=== PATIENT | female | born 1980 | race Caucasian/White ===

== ENCOUNTER 2025-06-28 10:10 | Day surgery (SDC) | payer OTHER ==
--- NOTE | 2025-06-28 09:03 | HP ---
HISTORY OF PRESENT ILLNESS: Patient is a 45-year-old, changing pigmented mole left chest near axilla. Mom has had history of skin cancer, one of her sisters having melanoma. PAST MEDICAL HISTORY: Hyperlipidemia. PAST SURGICAL HISTORY: Had tubal in the past. Had lamar excised on the right hip in the past. FAMILY HISTORY: As mentioned above, history of skin cancer, bladder cancer, and prostate cancer. ALLERGIES: No known drug allergies. SOCIAL HISTORY: No smoking. Occasional alcohol use. MEDICATIONS: Fenofibrate. REVIEW OF SYSTEMS: Twelve systems reviewed. Pertinent for medical problems noted above. No chest pain or palpitations. All other systems negative or noncontributory as above and per preadmission questionnaire. PHYSICAL EXAMINATION: GENERAL: No acute distress. VITAL SIGNS: Height 5 feet 3 inches. BMI 27.46. HEENT: Sclerae nonicteric. NECK: No JVD. CARDIOVASCULAR: Regular rate and rhythm. RESPIRATORY: Clear. ABDOMEN: Soft. EXTREMITIES: No cyanosis or edema. NEUROLOGIC: Alert and oriented, moving all extremities symmetrically. PSYCHIATRIC: Appropriate mood and affect. SKIN: Chest with pigmented lesion in the left axilla, indeterminate behavior. Otherwise, skin is dry. IMPRESSION: Changing lesion of indeterminate behavior, left chest near axilla; history of sister with melanoma with excision. Risks of bleeding and infection possibly requiring packing, hematoma, seroma, aches, pains, burning or numbness; risk of anesthesia, DVT, PE, pneumonia but not limited to. Risks involve possibly requiring other procedures. We will proceed with outpatient excisional biopsy, left chest near axilla, indeterminant behavior. Otherwise, continue medications for hyperlipidemia.
[2025-06-28 10:25] VITALS: RESP 18
[2025-06-28] MEDS ORDERED: CEFAZOLIN SODIUM ONE (10:29)
[2025-06-28] MEDS ORDERED: Lactated Ringers 1,000 ML IV ONE (10:29)
[2025-06-28] MEDS: Lactated Ringers 1,000 ML IV SCH (10:49)
[2025-06-28 11:02] LABS: HCG URINE TEST NEGATIVE (NEGATIVE)
[2025-06-28] MEDS ORDERED: Sensorcaine 0.25% 10 ML ONE (12:22)
[2025-06-28] MEDS ORDERED: SUBLIMAZE 100 MCG/2 ML ONE (13:04)
[2025-06-28] MEDS ORDERED: propofoL IV ONE (13:04)
[2025-06-28] MEDS ORDERED: Xylocaine-Mpf 2% 5 Ml Vial ONE (13:04)
[2025-06-28] MEDS ORDERED: Versed 2 MG/2 ML Injection ONE (13:04)
[2025-06-28 14:04] VITALS: TEMP 97.3
[2025-06-28 14:16] VITALS: BP 117/74; PULSE 55
[2025-06-28 14:17] VITALS: O2SAT 100
--- NOTE | 2025-06-29 11:10 | OP ---
SURGERY DATE/TIME: 06/28/2025 [id number] PREOPERATIVE DIAGNOSES: 1) Family history of melanoma. 2) History of changing pigment lesion left axilla lateral to the chest toward the axilla, lesion of indeterminate behavior. POSTOPERATIVE DIAGNOSES: 1) Family history of melanoma. 2) History of changing pigment lesion left axilla lateral to the chest toward the axilla, lesion of indeterminate behavior. 3) Pathology pending. PROCEDURE: Excisional biopsy left axillary lesion (approximately 1 cm margin) with intermediate closure. SURGEON: Lawrence Castellon MD ANESTHESIA: MAC with 0.25% Marcaine local. ESTIMATED BLOOD LOSS: Minimal. INDICATIONS: Consent obtained. DESCRIPTION OF PROCEDURE AND FINDINGS: Patient taken to the operating room. MAC anesthesia induced. She was prepped and draped in sterile fashion. After official time-out and no disagreement with planned procedure, marking out the normal-looking skin around this area. Dissection was carried deep to normal-appearing subcutaneous tissue beneath. This was passed off about 2 to 2.5 cm long spindle-shaped excision pattern, but the lesion itself was about 1 cm margin dissection. Good hemostasis noted with pinpoint cautery. The specimen passed off to Pathology. The flaps were mobilized back to the midline with interrupted 3-0 Vicryl. Skin closed with 4-0 Vicryl in running subcuticular fashion. Some Dermabond, a couple layers, and a sterile pressure dressing. Patient tolerated the procedure well. There were no immediate complications. Marcaine 0.25% local had been injected around the area and the time-out performed before we started.
== END 2025-06-28 14:21 | disposition home or self-care (01) ==
LOC: SDC 10:10
PROVIDERS: ATTEND Surgery
DX: L82.1 Other seborrheic keratosis (principal); L02.412 Cutaneous abscess of left axilla; Z80.8 Family history of malignant neoplasm of other organs or systems